=== PATIENT | female | born 1975 | race Caucasian/White ===

== ENCOUNTER 2016-12-04 21:32 | Emergency (ER) | payer MEDICARE, MEDICAID ==
[2016-12-05] MEDS ORDERED: DILAUDID 1 MG/ML AMP ONE (02:19)
[2016-12-05] MEDS ORDERED: SODIUM CHLORIDE 0.9% 1,000 ML ONE (02:19)
[2016-12-05] MEDS ORDERED: ONDANSETRON 4 MG VIAL ONE (02:19)
== END 2016-12-05 04:17 | disposition home or self-care (01) ==
LOC: ER 21:32
CPT/HCPCS: 36415 ×2; 80053 ×2; 82947 ×2; 85025 ×2; 96361; 96374; 96375; J1170; J2405

== ENCOUNTER 2017-01-02 13:12 | Emergency (ER) | payer MEDICARE, MEDICAID ==
[2017-01-02] MEDS ORDERED: ASPIRIN 81 MG CHEW TAB ONE (13:28)
[2017-01-02] MEDS ORDERED: ONDANSETRON 4 MG VIAL ONE (15:15)
[2017-01-02] MEDS ORDERED: SODIUM CHLORIDE 0.9% 1,000 ML ONE (15:16)
[2017-01-02] MEDS ORDERED: DILAUDID 1 MG/ML AMP ONE (15:16)
== END 2017-01-02 20:09 | disposition home or self-care (01) ==
LOC: ER 13:12
DX: R07.2 Precordial pain (principal); F17.210 Nicotine dependence, cigarettes, uncomplicated
CPT/HCPCS: 36415; 71010; 80053; 82550; 82947; 83735; 84484; 85025; 85610; 85730; 93005; 96361; 96374; 96375; 99285; J1170; J2405